=== PATIENT | female | born 1945 | race Caucasian/White ===

== ENCOUNTER → 2020-02-21 | Outpatient (CLI) | payer OTHER ==
[~2020-02-21] MED LIST: ALTACE10 MG PO; BENADRYL25 MG PO; DIPHENHIST50 MG; FLEXERIL PO; HYDROCODONE-APA1 TA1 PO; LASIX 20 MG TAB20 MG PO; METANX CAPSULE1 EACH PO; MORPHINE SULFAT30 M2; MORPHINE SULFAT60 M2 PO; NEURONTIN 300300 M1 PO; PAXIL10 MG PO; PROAIR HFA8.5 GM INH; REQUIP 1 MG TABL1 M1 PO; TENORMIN50 MG PO; TYLENOL325 MG PO; VICTOZA0.6 MG/0.1 SUBQ; ZOCOR40 MG PO; ZOCOR80 MG PO; ZOLPIDEM TARTRA10 MG PO
== END ==
LOC: SJCVC 10:26
PROVIDERS: ATTEND Internal Medicine
DX: R94.31 Abnormal electrocardiogram [ECG] [EKG] (principal); I44.0 Atrioventricular block, first degree; I49.9 Cardiac arrhythmia, unspecified; E78.00 Pure hypercholesterolemia, unspecified; I10 Essential (primary) hypertension; Z95.1 Presence of aortocoronary bypass graft; Z79.899 Other long term (current) drug therapy; Z87.891 Personal history of nicotine dependence

== ENCOUNTER → 2020-03-03 | Outpatient (CLI) | payer OTHER | LOC: SJCVC 13:23 | PROVIDERS: ATTEND Internal Medicine | DX: R94.31 Abnormal electrocardiogram [ECG] [EKG] (principal); I48.19 Other persistent atrial fibrillation; E11.9 Type 2 diabetes mellitus without complications; I10 Essential (primary) hypertension; E78.5 Hyperlipidemia, unspecified; I25.810 Atherosclerosis of coronary artery bypass graft(s) without angina pectoris; E78.00 Pure hypercholesterolemia, unspecified; E04.2 Nontoxic multinodular goiter; Z87.891 Personal history of nicotine dependence; Z95.1 Presence of aortocoronary bypass graft ==

== ENCOUNTER → 2020-03-28 | Outpatient (CLI) | payer OTHER | LOC: SJCVC 14:27 | PROVIDERS: ATTEND Internal Medicine | DX: I48.91 Unspecified atrial fibrillation (principal) ==

== ENCOUNTER → 2020-07-05 | Outpatient (CLI) | payer OTHER | LOC: SJCVC 16:32 | PROVIDERS: ATTEND Internal Medicine | DX: I48.91 Unspecified atrial fibrillation (principal); E11.9 Type 2 diabetes mellitus without complications; E78.5 Hyperlipidemia, unspecified; I10 Essential (primary) hypertension; I25.810 Atherosclerosis of coronary artery bypass graft(s) without angina pectoris; Z95.1 Presence of aortocoronary bypass graft; Z87.891 Personal history of nicotine dependence; Z88.0 Allergy status to penicillin; Z86.16 Personal history of COVID-19; Z88.8 Allergy status to other drugs, medicaments and biological substances; Z79.899 Other long term (current) drug therapy; Z88.2 Allergy status to sulfonamides ==